=== PATIENT | female | born 1975 | race Caucasian/White ===

== ENCOUNTER 2017-06-28 11:05 | Emergency (ER) | payer MEDICAID ==
[~2017-06-28] VITALS: Ht 177.8 cm; Wt 122.3 kg
[~2017-06-28 11:05] MED LIST: PRED20TA PO
[2017-06-28 11:51] LABS: CLARITY,URINE CLEAR (Clear); COLOR,URINE YELLOW (Yellow); GLUCOSE, URINE >=1000 mg/dl (Neg); KETONES,URINE NEGATIVE (Neg); LEUKOCYTE ESTERASE ,URINE NEGATIVE (Neg); NITRITES, URINE NEGATIVE (Neg); OCCULT BLOOD,URINE NEGATIVE (Neg); PH,URINE 5.5 (4.8-8.0); PROTEIN,URINE NEGATIVE (Neg); UROBILINOGEN,URINE 0.2 E.U/dL (0.2-1.0)
[2017-06-28 11:52] LABS: UA COLLECTION TYPE CLN CATCH MIDSTREAM
[2017-06-28 12:02] LABS: SQUAMOUS EPITHELIAL CELL,UR MODERATE /LPF (FEW)
[2017-06-28 12:03] LABS: BACTERIA,URINE 1+ /HPF (Neg); RBC,URINE 0-2 /HPF (0-2); WBC,URINE 0-4 /HPF (0-4); YEAST MODERATE /HPF (NEGATIVE)
[2017-06-28] MEDS ORDERED: METF500T PO (12:28)
[2017-06-28] MEDS ORDERED: LORA10TA7 PO (12:28)
[2017-06-28] MEDS ORDERED: EST1T PO (12:28)
[2017-06-28] MEDS ORDERED: IBUP-1984 PO (12:28)
[2017-06-28] MEDS ORDERED: S-AD200T6 PO (12:28)
[2017-06-28 12:55] LABS: BASOPHILS % (AUTO) 0.6 % (0-1); EOSINOPHILS # (AUTO) 0.1 X10'3 (0-0.9); EOSINOPHILS % (AUTO) 2.7 % (0-6); HEMATOCRIT 40.9 % (35.0-45.0); HEMOGLOBIN 14.3 g/dl (12.0-16.0); LYMPHOCYTES # (AUTO) 1.4 X10'3 (1.1-4.8); MEAN CORPUSCULAR HEMOGLOBIN 30.2 PG (27.0-31.0); MEAN CORPUSCULAR VOLUME 86.2 FL (78-98); MEAN PLATELET VOLUME 9.6 FL (7.4-10.4); MONOCYTES # (AUTO) 0.2 X10'3 (0-0.9); MONOCYTES % (AUTO) 6.9 % (2-12); NEUTROPHILS # (AUTO) 1.7 X10'3 (1.8-7.7); NEUTROPHILS % (AUTO) 49.8 % (42-75); PLATELET COUNT 59 X10'3 (140-440); RED BLOOD COUNT 4.74 X10'6 (4.20-5.60); RED CELL DISTRIBUTION WIDTH 12.6 % (11.5-14.5); WHITE BLOOD COUNT 3.5 X10'3 (4.5-11.0)
[2017-06-28 13:05] LABS: PARTIAL THROMBOPLASTIN TIME 25 SECONDS (22-32); PROTHROMBIN TIME 10.5 SECONDS (9.0-12.0)
[2017-06-28 13:18] LABS: ALANINE AMINOTRANSFERASE 107 U/L (12-78); ALBUMIN 3.4 G/DL (3.4-5.0); ALBUMIN/GLOBULIN RATIO 0.9 (1.1-1.5); ALKALINE PHOSPHATASE 163 IU/L (46-116); ANION GAP 8 (8-16); ASPARTATE AMINO TRANSFERASE 61 U/L (10-37); BILIRUBIN,TOTAL 0.6 MG/DL (0.1-1.0); BLOOD UREA NITROGEN 14 MG/DL (7-18); BUN/CREATININE RATIO 17.9 (6.6-38.0); CALCIUM 9.1 MG/DL (8.5-10.1); CHLORIDE 103 MMOL/L (99-107); CREATININE 0.78 MG/DL (0.40-0.90); GLUCOSE 306 MG/DL (70-104); POTASSIUM 4.1 MMOL/L (3.5-5.1); SODIUM 137 MMOL/L (135-145); TOTAL CARBON DIOXIDE 25.7 MMOL/L (24-32); TOTAL PROTEIN 7.1 G/DL (6.4-8.2); eGFR 81 ML/MIN
[2017-06-28 14:15] VITALS: BP 124/124
[2017-06-30 10:10] LABS: OCCULT BLOOD STOOL NEGATIVE (Neg)
== END 2017-06-28 14:16 | disposition home or self-care (01) ==
LOC: ER 11:06
DX: K92.1 Melena (principal); R73.9 Hyperglycemia, unspecified; R94.5 Abnormal results of liver function studies; Z90.710 Acquired absence of both cervix and uterus; Z90.49 Acquired absence of other specified parts of digestive tract; Z86.14 Personal history of Methicillin resistant Staphylococcus aureus infection; Z79.84 Long term (current) use of oral hypoglycemic drugs; Z79.899 Other long term (current) drug therapy
CPT/HCPCS: 36415; 80053; 81001; 82272; 85025; 85610; 85730; 99284

== ENCOUNTER 2020-04-23 05:18 | Inpatient (IN) | payer BC ==
[2020-04-16 12:41] LABS: BASOPHILS % (AUTO) 1.3 % (0-1); EOSINOPHILS % (AUTO) 1.5 % (0-6); LYMPHOCYTES # (AUTO) 0.8 X10'3 (1.1-4.8); LYMPHOCYTES % (AUTO) 36.9 % (21-51); MEAN CORPUSCULAR HGB CONC 33.7 g/dL (33.0-36.5); MEAN PLATELET VOLUME 9.1 FL (7.4-10.4); MONOCYTES # (AUTO) 0.2 X10'3 (0-0.9); MONOCYTES % (AUTO) 9.5 % (2-12); NEUTROPHILS # (AUTO) 1.1 X10'3 (1.8-7.7); NEUTROPHILS % (AUTO) 50.8 % (42-75); PRE OP HEMATOCRIT 41.4 % (35.0-45.0); PRE OP HEMOGLOBIN 13.9 g/dL (12.0-16.0); RED BLOOD COUNT 4.82 X10'6 (4.20-5.60); RED CELL DISTRIBUTION WIDTH 15.5 % (11.5-14.5)
[2020-04-16 12:51] LABS: PRE OP PLATELET COUNT 40 X10'3 (140-440)
[2020-04-16 12:55] LABS: ALBUMIN 3.5 G/DL (3.4-5.0); ALBUMIN/GLOBULIN RATIO 0.9 (1.1-1.5); ALKALINE PHOSPHATASE 215 IU/L (46-116); BLOOD UREA NITROGEN 11 MG/DL (7-18); BUN/CREATININE RATIO 17.2 (6.6-38.0); CALCIUM 8.9 MG/DL (8.5-10.1); CHLORIDE 104 MMOL/L (99-107); CREATININE 0.64 MG/DL (0.40-0.90); PRE OP ALT 61 U/L (30-65); PRE OP ANION GAP 11 (8-16); PRE OP AST 54 U/L (10-37); PRE OP BILIRUB, TOTAL 0.9 MG/DL (0.0-1.0); PRE OP GLUCOSE 158 MG/DL (70-104); PRE OP POTASSIUM 3.7 MMOL/L (3.4-5.1); PRE OP SODIUM 139 MMOL/L (135-145); TOTAL CARBON DIOXIDE 24.5 MMOL/L (24-32); TOTAL PROTEIN 7.2 G/DL (6.4-8.2); eGFR > 90 ML/MIN
[2020-04-16 13:13] LABS: PLATELET ESTIMATE DECREASED; TOTAL CELLS COUNTED 100
[~2020-04-23] VITALS: Ht 177.8 cm; Wt 108.9 kg
[2020-04-23] VITALS (31 sets, daily range): BP systolic 103–147; BP diastolic 56–96
[~2020-04-23 05:18] MED LIST changes: +METF500T PO; -PRED20TA PO; +ringers solution, lacted 1,000 ML IV SCH
[2020-04-23] MEDS ORDERED: famotidine 20mg tablet PO ONE (05:30)
[2020-04-23] MEDS ORDERED: ceFAZolin 2gm in dextrose, iso 50 ML IV ONE (05:30)
[2020-04-23] MEDS ORDERED: LIDOcaine 1% (10mg/ml) 2ml vial ONE (05:56)
[2020-04-23] MEDS ORDERED: LIDOcaine 1% 30ml preserv. free vial ONE (06:39)
[2020-04-23] MEDS ORDERED: BUPIVAcaine/PF 2.5 mg/ml (0.25%) 30ml vial ONE (06:40)
[2020-04-23] MEDS ORDERED: BUPIVACAINE liposomal/PF 13.3 MG/ML vial IM ONE (06:40)
[2020-04-23] MEDS ORDERED: BUPIVAcaine/PF 2.5mg/ml (0.25%) 10ml vial ONE (06:40)
[2020-04-23] MEDS ORDERED: labetalol 20mg/4ml (5mg/ml) syringe IV PRN (07:15)
[2020-04-23] MEDS ORDERED: morphine 2 MG/ML inj. syringe IV PRN (07:15)
[2020-04-23] MEDS ORDERED: ondansetron/PF 4mg/2ml inj IV PRN ×2 (07:15→11:20)
[2020-04-23] MEDS ORDERED: fentaNYL/PF 50MCG/1 ML 2ML syringe IV PRN ×2 (07:15)
[2020-04-23] MEDS ORDERED: ringers solution, lacted 1,000 ML IV SCH (07:15)
[2020-04-23] MEDS ORDERED: hydrALAZINE 20mg/ml inj. IV PRN (07:15)
[2020-04-23] MEDS ORDERED: midazolam 2 mg/2 ml injection ONE (07:21)
[2020-04-23] MEDS ORDERED: fentaNYL /PF 50mcg/ml 5ml ampule ONE (07:21)
[2020-04-23] MEDS ORDERED: ondansetron/PF 4mg/2ml inj ONE (07:23)
[2020-04-23] MEDS ORDERED: propofol inj 20 ML IV ONE (07:23)
[2020-04-23] MEDS ORDERED: glycopyrrolate 0.2mg/ml inj ONE (07:23)
[2020-04-23] MEDS ORDERED: rocuronium 10mg/ml inj IV ONE ×2 (07:23→09:05)
[2020-04-23] MEDS ORDERED: neostigmine methylsulfate 1 MG/ML 10ml vial ONE (07:23)
[2020-04-23] MEDS ORDERED: dexamethasone sod phosphate 4mg/ml inj. ONE (07:23)
[2020-04-23] MEDS ORDERED: LIDOcaine 2% (20mg/ml) 5ml vial ONE (07:23)
[2020-04-23] MEDS ORDERED: sevoflurane 250ml liquid IH ONE (07:40)
[2020-04-23] MEDS ORDERED: labetalol 20mg/4ml (5mg/ml) syringe IV ONE (08:14)
[2020-04-23] MEDS ORDERED: fentaNYL/PF 50MCG/1 ML 2ML syringe ONE (09:42)
[2020-04-23] MEDS ORDERED: albumin (Human) 5% 250ml 250 ML IV ONE (10:25)
--- NOTE | 2020-04-23 11:16 | NUR ---
Received from OR via SURGICAL BED , accompanied by Anesthesiologist ANITHA and report given by Anesthesiolgist. PATIENT WITH 20GPIV IN LEFT UE RUNNING LR AT 100. BG OF 223 UPON ARRIVAL. MEDICATED FOR PAIN. Addendum: 04/23/20 at 1137 by Madi Green RN, RN Amended: Links added.
[2020-04-23] MEDS ORDERED: naloxone 0.4 mg/ml inj IV PRN (11:20)
[2020-04-23] MEDS ORDERED: CADD PCA waste documentation MC PRN (11:20)
[2020-04-23] MEDS: morphine 4 MG/ML inj SYRINge IV PRN ×2 (11:51→12:01)
[2020-04-23] MEDS: HYDROmorphone/NS 1 mg/ml CADD 50 ML IV SCH ×7 (12:03→23:00)
[2020-04-23 13:02] LABS: BASOPHILS % (AUTO) 0.2 % (0-1); EOSINOPHILS % (AUTO) 0.7 % (0-6); HEMATOCRIT 36.8 % (35.0-45.0); HEMOGLOBIN 12.4 g/dl (12.0-16.0); LYMPHOCYTES # (AUTO) 0.3 X10'3 (1.1-4.8); LYMPHOCYTES % (AUTO) 14.3 % (21-51); MEAN CORPUSCULAR HEMOGLOBIN 29.2 PG (27.0-31.0); MEAN CORPUSCULAR HGB CONC 33.8 g/dL (33.0-36.5); MEAN CORPUSCULAR VOLUME 86.5 FL (78-98); MEAN PLATELET VOLUME 8.6 FL (7.4-10.4); MONOCYTES % (AUTO) 2.3 % (2-12); NEUTROPHILS # (AUTO) 1.6 X10'3 (1.8-7.7); NEUTROPHILS % (AUTO) 82.5 % (42-75); RED BLOOD COUNT 4.25 X10'6 (4.20-5.60); RED CELL DISTRIBUTION WIDTH 15.4 % (11.5-14.5)
[2020-04-23 13:08] LABS: PLATELET COUNT 37 X10'3 (140-440)
[2020-04-23 13:18] LABS: ALANINE AMINOTRANSFERASE 55 U/L (12-78); ALBUMIN 3.2 G/DL (3.4-5.0); ALKALINE PHOSPHATASE 177 IU/L (46-116); ANION GAP 10 (8-16); ASPARTATE AMINO TRANSFERASE 61 U/L (10-37); BILIRUBIN,TOTAL 1.2 MG/DL (0.1-1.0); BLOOD UREA NITROGEN 15 MG/DL (7-18); CALCIUM 8.2 MG/DL (8.5-10.1); CHLORIDE 105 MMOL/L (99-107); CREATININE 0.79 MG/DL (0.40-0.90); GLUCOSE 272 MG/DL (70-104); POTASSIUM 4.3 MMOL/L (3.5-5.1); SODIUM 139 MMOL/L (135-145); TOTAL CARBON DIOXIDE 23.6 MMOL/L (24-32); TOTAL PROTEIN 6.5 G/DL (6.4-8.2); eGFR 78 ML/MIN
--- NOTE | 2020-04-23 13:46 | NUR ---
Report called to receiving nurse. Transferred via SURGICAL BED WITH ONE BAG OF Belongings. Special Issues communicated to receiving nurse.VSS. BED LOW, CALL LIGHT PRESENT. PAIN AT A MANAGEABLE LEVEL. NO DRAINAGE PRESENT. Addendum: 04/23/20 at 1352 by Madi Green RN RN Amended: Links added.
[2020-04-23] MEDS ORDERED: glucagon, human recombinant 1mg kit SUBCUT PRN (15:40)
[2020-04-23] MEDS ORDERED: dextrose 50%-water 50ml dispensing syringe IV PRN ×2 (15:40)
[2020-04-23] MEDS ORDERED: MESSAGE TO PHARMACY PO ONE (15:40)
[2020-04-23] MEDS ORDERED: dextrose ORAL solution 15 GM/59 ML bottle PO PRN ×2 (15:40)
[2020-04-23 16:03] LABS: HEMOGLOBIN A1C 8.1 % (4.5-6.2)
[2020-04-23] MEDS: Potassium Cl inj 20 MEQ in ringers solution, lacted 1,000 ML IV SCH ×2 (17:25→19:25)
[2020-04-23] MEDS: insulin glargine (Lantus) pen - multi-dose SQ SCH (21:30)
[2020-04-24] VITALS (9 sets, daily range): BP systolic 117–132; BP diastolic 63–79
[2020-04-24] MEDS: HYDROmorphone/NS 1 mg/ml CADD 50 ML IV SCH ×9 (01:00→17:00)
--- NOTE | 2020-04-24 02:53 | NUR ---
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 PLEASE ADVISE. DARIN FROM SURGICAL [id number] (98 character message out of a maximum of 240) Close [X] Send Another Page Thank you for visiting [facility]
[2020-04-24] MEDS: Potassium Cl inj 20 MEQ in ringers solution, lacted 1,000 ML IV SCH ×3 (05:14→17:16)
--- NOTE | 2020-04-24 05:35 | NUR ---
PT ALERT AND ORIENTED. VOICED HAS A GOOD NIGT
--- NOTE | 2020-04-24 05:37 | NUR ---
PATIENT ALERT AND ORIENTED, STILL IN PAIN. BROADCAST NEWS PRODUCER PUMP STILL IN USE. PATIENT WALKS SEVERAL TIMES, SHE EXPRESSED PASSING GAS. NO BM YET. STILL WAITING BACKBREAKER BACK FOR IBUPROFEN SHE REQUEST FOR SINUS DISCOMFORT. VS WHITIN NORMAL RANGE. NO ACUTE DISTRESS AT THIS TIME
--- NOTE | 2020-04-24 06:10 | NUR ---
Patient in room [facility]. I have received report from JOSE Keller and had the opportunity to ask questions and assume patient care.
--- NOTE | 2020-04-24 06:20 | NUR ---
REPORT GIVEN TO MORNING NURSE. PLAN REPRIORITIZED. QUESTIONS ANSWERED.
[2020-04-24 07:21] LABS: BASOPHILS % (AUTO) 0.5 % (0-1); HEMATOCRIT 35.4 % (35.0-45.0); HEMOGLOBIN 11.9 g/dl (12.0-16.0); LYMPHOCYTES # (AUTO) 0.7 X10'3 (1.1-4.8); MEAN CORPUSCULAR HEMOGLOBIN 29.7 PG (27.0-31.0); MEAN CORPUSCULAR HGB CONC 33.6 g/dL (33.0-36.5); MEAN CORPUSCULAR VOLUME 88.5 FL (78-98); MONOCYTES # (AUTO) 0.5 X10'3 (0-0.9); MONOCYTES % (AUTO) 12.2 % (2-12); NEUTROPHILS # (AUTO) 2.9 X10'3 (1.8-7.7); NEUTROPHILS % (AUTO) 69.3 % (42-75); RED CELL DISTRIBUTION WIDTH 15.7 % (11.5-14.5); WHITE BLOOD COUNT 4.2 X10'3 (4.5-11.0)
[2020-04-24 07:31] LABS: PLATELET COUNT 41 X10'3 (140-440)
[2020-04-24 07:39] LABS: ALANINE AMINOTRANSFERASE 50 U/L (12-78); ALBUMIN 3.1 G/DL (3.4-5.0); ALKALINE PHOSPHATASE 122 IU/L (46-116); ANION GAP 8 (8-16); ASPARTATE AMINO TRANSFERASE 58 U/L (10-37); BILIRUBIN,TOTAL 1.6 MG/DL (0.1-1.0); BLOOD UREA NITROGEN 11 MG/DL (7-18); BUN/CREATININE RATIO 19.6 (6.6-38.0); CALCIUM 8.7 MG/DL (8.5-10.1); CHLORIDE 105 MMOL/L (99-107); CREATININE 0.56 MG/DL (0.40-0.90); GLUCOSE 188 MG/DL (70-104); MAGNESIUM 1.9 MG/DL (1.5-2.4); PHOSPHORUS 3.6 MG/DL (2.3-4.5); POTASSIUM 4.1 MMOL/L (3.5-5.1); SODIUM 140 MMOL/L (135-145); TOTAL CARBON DIOXIDE 27.5 MMOL/L (24-32); TOTAL PROTEIN 6.2 G/DL (6.4-8.2); eGFR > 90 ML/MIN
[2020-04-24] MEDS: insulin Lispro (HumaLOG) vial - multi-dose SQ SCH ×3 (08:32→18:56)
[2020-04-24] MEDS: lisinopril 5mg tablet PO SCH (10:25)
[2020-04-24] MEDS ORDERED: METF-950 PO (10:28)
[2020-04-24] MEDS ORDERED: LISI-604 PO (10:28)
[2020-04-24] MEDS ORDERED: AMA1T PO (10:28)
[2020-04-24] MEDS ORDERED: ASPI-1265 PO (10:28)
[2020-04-24] MEDS ORDERED: Melatonin 3mg tablet PO PRN (11:40)
[2020-04-24] MEDS ORDERED: ibuprofen tablet 400 MG TABLET PO PRN (11:40)
--- NOTE | 2020-04-24 15:43 | NUR ---
Pt with T2DM with A1c 8.1% seen at bedside for written and verbal DM education. Pt reports being newly diagnosed with diabetes a couple months ago and has a f/u appointment with her MD near the end of this month. Pt states she has tried a few different medications for diabetes however is still working with her MD to determine which works best for her. Pt states she does not have a glucometer and refuses to poke herself. Pt verbalizes understanding in the importance of checking her blood sugars and states that her MD is aware of this and is working with MD to determine the best plan of care. Pt states she has already been provided with information regarding nutrition and diabetes management and denies questions at this time. Pt states she has been referred to an outpatient RD for further DM education and is working on scheduling an appointment and reports sister in law is into nutrition and can also assist with nutrition and diabetes management. Pt provided with RD contact information and encouraged to reach out if needed. Pt reports food allergy to avocado and dislike to fish, lemon, [place], and oranges, EMR updated and dietary informed. Pt denies any difficulty chewing/swallowing. Will continue to follow. Addendum: 04/24/20 at [address] Amended: Links added.
[2020-04-24] MEDS ORDERED: oxyCODONE/APAP 5-325mg tablet PO PRN (17:20)
[2020-04-24] MEDS ORDERED: magnesium hydroxide 30ml (MOM) UD suspension PO ONE (17:20)
[2020-04-24] MEDS: oxyCODONE/APAP 5-325mg tablet PO PRN ×2 (17:44→21:14)
[2020-04-24] MEDS ORDERED: CADD PCA waste documentation MC PRN (18:35)
--- NOTE | 2020-04-24 18:40 | NUR ---
Problems reprioritized. Patient report given, questions answered & plan of care reviewed with JOSE Altamirano.
[2020-04-24] MEDS: insulin glargine (Lantus) pen - multi-dose SQ SCH (20:56)
[2020-04-25] VITALS: BP 111/59
[2020-04-25] MEDS: oxyCODONE/APAP 5-325mg tablet PO PRN ×3 (01:12→09:55)
--- NOTE | 2020-04-25 06:25 | NUR ---
Patient in room [facility]. I have received report from JOSE Altamirano and had the opportunity to ask questions and assume patient care.
[2020-04-25 06:26] LABS: BASOPHILS % (AUTO) 0.6 % (0-1); EOSINOPHILS # (AUTO) 0.1 X10'3 (0-0.9); EOSINOPHILS % (AUTO) 3.4 % (0-6); HEMATOCRIT 34.8 % (35.0-45.0); HEMOGLOBIN 11.9 g/dl (12.0-16.0); LYMPHOCYTES % (AUTO) 25.5 % (21-51); MEAN CORPUSCULAR HEMOGLOBIN 30.4 PG (27.0-31.0); MEAN CORPUSCULAR HGB CONC 34.1 g/dL (33.0-36.5); MEAN CORPUSCULAR VOLUME 89.2 FL (78-98); MEAN PLATELET VOLUME 9.1 FL (7.4-10.4); MONOCYTES # (AUTO) 0.5 X10'3 (0-0.9); MONOCYTES % (AUTO) 12.3 % (2-12); NEUTROPHILS # (AUTO) 2.3 X10'3 (1.8-7.7); NEUTROPHILS % (AUTO) 58.2 % (42-75); RED CELL DISTRIBUTION WIDTH 15.4 % (11.5-14.5); WHITE BLOOD COUNT 3.9 X10'3 (4.5-11.0)
[2020-04-25 06:30] VITALS: BP 104/59
[2020-04-25 06:37] LABS: PLATELET COUNT 34 X10'3 (140-440)
[2020-04-25 06:46] LABS: ALANINE AMINOTRANSFERASE 57 U/L (12-78); ALBUMIN 3.2 G/DL (3.4-5.0); ALKALINE PHOSPHATASE 113 IU/L (46-116); ANION GAP 6 (8-16); ASPARTATE AMINO TRANSFERASE 65 U/L (10-37); BILIRUBIN,TOTAL 1.7 MG/DL (0.1-1.0); BLOOD UREA NITROGEN 11 MG/DL (7-18); BUN/CREATININE RATIO 19.3 (6.6-38.0); CALCIUM 8.1 MG/DL (8.5-10.1); CHLORIDE 104 MMOL/L (99-107); CREATININE 0.57 MG/DL (0.40-0.90); GLUCOSE 156 MG/DL (70-104); MAGNESIUM 1.9 MG/DL (1.5-2.4); PHOSPHORUS 4.1 MG/DL (2.3-4.5); POTASSIUM 4.1 MMOL/L (3.5-5.1); SODIUM 139 MMOL/L (135-145); TOTAL PROTEIN 6.3 G/DL (6.4-8.2); eGFR > 90 ML/MIN
[2020-04-25] MEDS: lisinopril 5mg tablet PO SCH (08:00)
[2020-04-25] MEDS: insulin Lispro (HumaLOG) vial - multi-dose SQ SCH (08:29)
[2020-04-25] MEDS ORDERED: aspirin 81mg tablet.DR PO SCH (08:30)
[2020-04-25 11:00] VITALS: BP 100/50
[2020-04-25] MEDS ORDERED: OXYC1TAB17 PO (11:21)
[2020-04-25] MEDS ORDERED: magnesium hydroxide 30ml (MOM) UD suspension PO ONE (11:30)
--- NOTE | 2020-04-25 12:55 | NUR ---
DC inst provided to pt. IV DC'd, tip intact. All belongings sent w/pt. Pt ambulated to front lobby.
== END 2020-04-25 12:57 | disposition home or self-care (01) | DRG 336 ==
LOC: PAS 05:18 → SUR 3N 11:16
PROVIDERS: ADMIT Surgery; ATTEND Surgery
PROC: 0DNU4ZZ Release Omentum, Percutaneous Endoscopic Approach (ICD-10-PCS; 2020-04-23)
PROC: 0DNE4ZZ Release Large Intestine, Percutaneous Endoscopic Approach (ICD-10-PCS; 2020-04-23)
PROC: 0DN84ZZ Release Small Intestine, Percutaneous Endoscopic Approach (ICD-10-PCS; 2020-04-23)
PROC: 8E0W4CZ Robotic Assisted Procedure of Trunk Region, Percutaneous Endoscopic Approach (ICD-10-PCS; 2020-04-23)
PROC: 0WQF4ZZ Repair Abdominal Wall, Percutaneous Endoscopic Approach (ICD-10-PCS; principal; 2020-04-23 07:40)
DX: K43.0 Incisional hernia with obstruction, without gangrene (principal); D61.818 Other pancytopenia; K76.6 Portal hypertension; D69.59 Other secondary thrombocytopenia; E11.9 Type 2 diabetes mellitus without complications; E66.9 Obesity, unspecified; K66.0 Peritoneal adhesions (postprocedural) (postinfection); K74.60 Unspecified cirrhosis of liver; F17.210 Nicotine dependence, cigarettes, uncomplicated; Z79.82 Long term (current) use of aspirin; Z79.84 Long term (current) use of oral hypoglycemic drugs; Z80.0 Family history of malignant neoplasm of digestive organs; Z90.710 Acquired absence of both cervix and uterus; Z68.34 Body mass index [BMI] 34.0-34.9, adult; Z90.49 Acquired absence of other specified parts of digestive tract
CPT/HCPCS: Z7506; Z7508; 36415; 80053; 82948; 83036; 83735; 84100; 84443; 85007; 85025; 85610; 87635; 93005; A4215; A4618; C9290; G0378; J1100; J1170; J1815; J2001; J2250; J2270; J2405; J2704; J2710; J3010; J3480; J3490; J7120; P9045

== ENCOUNTER 2020-07-08 08:26 | Outpatient (CLI) | payer BC ==
[~2020-07-08 08:26] MED LIST changes: +LISI-790 PO; -METF500T PO; +iohexol 300mg/ml 100ml inj. ONE; -ringers solution, lacted 1,000 ML IV SCH
== END 2020-07-08 23:59 | disposition home or self-care (01) ==
LOC: 64 CT 08:26
PROVIDERS: ATTEND Surgery
DX: K76.0 Fatty (change of) liver, not elsewhere classified (principal); R16.1 Splenomegaly, not elsewhere classified; I86.8 Varicose veins of other specified sites; K76.6 Portal hypertension; K74.60 Unspecified cirrhosis of liver
CPT/HCPCS: 74177; Q9967

== ENCOUNTER 2020-07-21 11:39 | Emergency (ER) | payer BC ==
[~2020-07-21] VITALS: Ht 180.3 cm; Wt 100.0 kg
[~2020-07-21 11:39] MED LIST changes: -iohexol 300mg/ml 100ml inj. ONE
[2020-07-21] MEDS ORDERED: normal saline 1000ML IV soln IVB ONE (11:55)
[2020-07-21 12:21] LABS: BASOPHILS % (AUTO) 0.5 % (0-1); EOSINOPHILS % (AUTO) 1.8 % (0-6); HEMATOCRIT 42.8 % (35.0-45.0); HEMOGLOBIN 14.1 g/dl (12.0-16.0); LYMPHOCYTES # (AUTO) 0.6 X10'3 (1.1-4.8); LYMPHOCYTES % (AUTO) 23.9 % (21-51); MEAN CORPUSCULAR HEMOGLOBIN 28.6 PG (27.0-31.0); MEAN CORPUSCULAR HGB CONC 32.9 g/dL (33.0-36.5); MEAN CORPUSCULAR VOLUME 86.9 FL (78-98); MEAN PLATELET VOLUME 9.5 FL (7.4-10.4); MONOCYTES # (AUTO) 0.2 X10'3 (0-0.9); NEUTROPHILS # (AUTO) 1.5 X10'3 (1.8-7.7); NEUTROPHILS % (AUTO) 63.8 % (42-75); RED BLOOD COUNT 4.93 X10'6 (4.20-5.60); RED CELL DISTRIBUTION WIDTH 16.3 % (11.5-14.5); WHITE BLOOD COUNT 2.3 X10'3 (4.5-11.0)
[2020-07-21 12:35] LABS: ALANINE AMINOTRANSFERASE 46 U/L (12-78); ALBUMIN 3.6 G/DL (3.4-5.0); ALBUMIN/GLOBULIN RATIO 0.9 (1.1-1.5); ALKALINE PHOSPHATASE 167 IU/L (46-116); ANION GAP 13 (8-16); ASPARTATE AMINO TRANSFERASE 57 U/L (10-37); BILIRUBIN,TOTAL 1.1 MG/DL (0.1-1.0); BLOOD UREA NITROGEN 11 MG/DL (7-18); CALCIUM 9.3 MG/DL (8.5-10.1); CHLORIDE 106 MMOL/L (99-107); CREATININE 0.55 MG/DL (0.40-0.90); GLUCOSE 110 MG/DL (70-104); LIPASE 146 U/L (73-393); SODIUM 142 MMOL/L (135-145); TOTAL CARBON DIOXIDE 23.3 MMOL/L (24-32); TOTAL PROTEIN 7.6 G/DL (6.4-8.2); eGFR > 90 ML/MIN
[2020-07-21 12:44] LABS: PLATELET COUNT 43 X10'3 (140-440)
[2020-07-21 12:52] LABS: ANISOCYTOSIS 1+; PLATELET ESTIMATE DECREASED; TOTAL CELLS COUNTED 100
[2020-07-21] MEDS ORDERED: ondansetron/PF 4mg/2ml inj IV ONE (13:25)
[2020-07-21 13:27] VITALS: BP 137/75
[2020-07-21] MEDS: morphine 4 MG/ML inj SYRINge IV PRN ×2 (13:37→14:16)
[2020-07-21 14:00] LABS: CLARITY,URINE CLEAR (Clear); COLOR,URINE YELLOW (Yellow); GLUCOSE, URINE NEGATIVE (Neg); KETONES,URINE TRACE mg/dl (Neg); LEUKOCYTE ESTERASE ,URINE NEGATIVE (Neg); NITRITES, URINE NEGATIVE (Neg); OCCULT BLOOD,URINE NEGATIVE (Neg); PROTEIN,URINE NEGATIVE (Neg); UROBILINOGEN,URINE 0.2 E.U/dL (0.2-1.0)
[2020-07-21 14:05] LABS: UA COLLECTION TYPE CLN CATCH MIDSTREAM
== END 2020-07-21 14:29 | disposition home or self-care (01) ==
LOC: ER 11:41
DX: K74.60 Unspecified cirrhosis of liver (principal); R10.84 Generalized abdominal pain; R11.2 Nausea with vomiting, unspecified; G89.18 Other acute postprocedural pain; Z86.14 Personal history of Methicillin resistant Staphylococcus aureus infection; Z90.89 Acquired absence of other organs; Z90.49 Acquired absence of other specified parts of digestive tract; Z90.710 Acquired absence of both cervix and uterus; Z98.890 Other specified postprocedural states; Z88.8 Allergy status to other drugs, medicaments and biological substances; Z79.899 Other long term (current) drug therapy
CPT/HCPCS: 36415; 71045; 80053; 81003; 83690; 85007; 85025; 96361; 96374; 96375; 96376; 99284; J2270; J2405; J7030

== ENCOUNTER 2023-01-13 07:43 | Day surgery (SDC) | payer BC ==
[2023-01-13] VITALS (8 sets, daily range): BP systolic 114–135; BP diastolic 48–90; PULSE 88–95; RESP 12–16; TEMP 98.2; O2SAT 97–98
[~2023-01-13] VITALS: Ht 162.6 cm; Wt 105.2 kg
[~2023-01-13 07:43] MED LIST changes: +FERR325T29 PO; +FURO40TA4 PO; +GABA300T25 PO; -LISI-790 PO; +METF-438 PO; +MONT-40 PO; +OMEP40CA21 PO; +ONDA-104 PO; +OXYC10TA47 PO; +SEMA1PEN3 SQ; +SPIR25TA5 PO; +ZOLP10TA PO
[2023-01-13] MEDS: albumin 25% 100mL bottle x 1 IV PRN ×2 (09:35→09:37)
== END 2023-01-13 11:05 | disposition home or self-care (01) ==
LOC: SSTAY O 07:43
PROVIDERS: ATTEND Radiology Diagnostic Radiology
DX: R18.8 Other ascites (principal); R14.0 Abdominal distension (gaseous); K75.81 Nonalcoholic steatohepatitis (NASH); K76.6 Portal hypertension; K74.60 Unspecified cirrhosis of liver; D72.819 Decreased white blood cell count, unspecified; D64.9 Anemia, unspecified; D69.6 Thrombocytopenia, unspecified; E11.9 Type 2 diabetes mellitus without complications; Z98.890 Other specified postprocedural states; Z90.49 Acquired absence of other specified parts of digestive tract; Z90.710 Acquired absence of both cervix and uterus; Z91.018 Allergy to other foods; Z79.899 Other long term (current) drug therapy; Z79.84 Long term (current) use of oral hypoglycemic drugs
CPT/HCPCS: 49083; 82948; C1729; J3490; P9047; A6258

== ENCOUNTER 2023-01-20 06:56 | Day surgery (SDC) | payer BC ==
[2023-01-20] VITALS (8 sets, daily range): BP systolic 116–150; BP diastolic 62–75; PULSE 96–104; RESP 12–16; TEMP 99.1; O2SAT 97–99
[~2023-01-20] VITALS: Ht 180.3 cm; Wt 103.4 kg
[2023-01-20] MEDS ORDERED: normal saline 1000ml 1,000 ML IV PRN (07:15)
[2023-01-20] MEDS: albumin 25% 100mL bottle x 1 IV PRN ×2 (09:15→09:40)
== END 2023-01-20 10:45 | disposition home or self-care (01) ==
LOC: SSTAY O 06:56
PROVIDERS: ATTEND Radiology Vascular & Interventional Radiology
DX: R18.8 Other ascites (principal); R14.0 Abdominal distension (gaseous); K75.81 Nonalcoholic steatohepatitis (NASH); K74.60 Unspecified cirrhosis of liver; K76.6 Portal hypertension; D64.9 Anemia, unspecified; D72.819 Decreased white blood cell count, unspecified; D69.6 Thrombocytopenia, unspecified; E11.9 Type 2 diabetes mellitus without complications; Z98.890 Other specified postprocedural states; Z90.49 Acquired absence of other specified parts of digestive tract; Z90.710 Acquired absence of both cervix and uterus; Z91.018 Allergy to other foods; Z79.899 Other long term (current) drug therapy; Z79.84 Long term (current) use of oral hypoglycemic drugs
CPT/HCPCS: 49083; C1729; J3490; P9047; 96360; A6258; A6449

== ENCOUNTER 2023-01-27 07:14 | Day surgery (SDC) | payer BC ==
[~2023-01-27] VITALS: Ht 180.3 cm; Wt 111.2 kg
[2023-01-27] VITALS (7 sets, daily range): BP systolic 154–165; BP diastolic 73–85; PULSE 97–107; RESP 14–20; TEMP 97.8; O2SAT 96–100
[2023-01-27] MEDS ORDERED: ketorolac trometh. 30mg/ml inj. IV ONE (08:25)
[2023-01-27] MEDS ORDERED: metoclopramide 5 mg/ml inj IV ONE (08:25)
[2023-01-27] MEDS: albumin 25% 100mL bottle x 1 IV PRN ×2 (08:33→09:11)
== END 2023-01-27 11:00 | disposition home or self-care (01) ==
LOC: SSTAY O 07:14
PROVIDERS: ATTEND Radiology Vascular & Interventional Radiology
DX: R18.8 Other ascites (principal); K74.60 Unspecified cirrhosis of liver; K76.6 Portal hypertension; R16.1 Splenomegaly, not elsewhere classified; Z90.49 Acquired absence of other specified parts of digestive tract; Z90.710 Acquired absence of both cervix and uterus; Z98.890 Other specified postprocedural states; Z79.899 Other long term (current) drug therapy
CPT/HCPCS: 49083; C1729; J1885; J2765; P9047; A6258; A6449

== ENCOUNTER 2023-02-03 07:27 | Day surgery (SDC) | payer BC ==
[2023-02-03] VITALS (7 sets, daily range): BP systolic 109–136; BP diastolic 63–88; PULSE 84–93; RESP 16–18; TEMP 98.2; O2SAT 97–99
[~2023-02-03] VITALS: Ht 180.3 cm; Wt 99.1 kg
[2023-02-03] MEDS ORDERED: ketorolac trometh. 30mg/ml inj. IV ONE (08:25)
[2023-02-03] MEDS ORDERED: ondansetron/PF 4mg/2ml inj IV ONE (08:25)
[2023-02-03] MEDS ORDERED: albumin 25% 100mL bottle x 1 IV PRN (08:30)
[2023-02-03] MEDS ORDERED: ketorolac tromethamine 15mg/ml inj. IV ONE (08:52)
== END 2023-02-03 10:30 | disposition home or self-care (01) ==
LOC: SSTAY O 07:27
PROVIDERS: ATTEND Radiology Vascular & Interventional Radiology
DX: R18.8 Other ascites (principal); K76.6 Portal hypertension; K74.60 Unspecified cirrhosis of liver; D64.9 Anemia, unspecified; Z90.49 Acquired absence of other specified parts of digestive tract; Z90.710 Acquired absence of both cervix and uterus; Z98.890 Other specified postprocedural states; Z79.899 Other long term (current) drug therapy
CPT/HCPCS: 49083; C1729; J1885; J2405; P9047; A6258; A6449

== ENCOUNTER 2023-02-10 07:31 | Day surgery (SDC) | payer BC ==
[2023-02-10] VITALS (7 sets, daily range): BP systolic 113–146; BP diastolic 61–97; PULSE 86–101; RESP 15–17; TEMP 99; O2SAT 95–99
[~2023-02-10] VITALS: Ht 180.3 cm; Wt 103.7 kg
[2023-02-10] MEDS: albumin 25% 100mL bottle x 1 IV PRN ×2 (08:35→09:28)
--- NOTE | 2023-02-10 10:20 | NUR ---
Pt not draining any more. Slight blood in tube. DCd para cath and Case came in to look at it. Offered to do the procedure again the pt declined. She is very emotional today and can't tolerate another one. Case wanted 2 albumins infusion even with low output. Cont to monitor.
== END 2023-02-10 10:45 | disposition home or self-care (01) ==
LOC: SSTAY O 07:31
PROVIDERS: ATTEND Radiology Vascular & Interventional Radiology
DX: R18.8 Other ascites (principal); R14.0 Abdominal distension (gaseous); K75.81 Nonalcoholic steatohepatitis (NASH); K74.60 Unspecified cirrhosis of liver; K76.6 Portal hypertension; D64.9 Anemia, unspecified; D72.819 Decreased white blood cell count, unspecified; D69.6 Thrombocytopenia, unspecified; E11.9 Type 2 diabetes mellitus without complications; Z90.49 Acquired absence of other specified parts of digestive tract; Z90.710 Acquired absence of both cervix and uterus; Z98.890 Other specified postprocedural states; Z79.84 Long term (current) use of oral hypoglycemic drugs; Z79.899 Other long term (current) drug therapy; Z91.018 Allergy to other foods
CPT/HCPCS: 49083; C1729; P9047; A6258; A6449

== ENCOUNTER 2023-02-16 06:11 | Day surgery (SDC) | payer BC ==
[2023-02-16] VITALS (7 sets, daily range): BP systolic 119–160; BP diastolic 68–97; PULSE 92–101; RESP 12–16; TEMP 99; O2SAT 95–99
[~2023-02-16] VITALS: Ht 180.3 cm; Wt 106.2 kg
[2023-02-16] MEDS: albumin 25% 100mL bottle x 1 IV PRN ×2 (08:21→09:03)
== END 2023-02-16 10:03 | disposition home or self-care (01) ==
LOC: SSTAY O 06:11
PROVIDERS: ATTEND Radiology Vascular & Interventional Radiology
DX: R18.8 Other ascites (principal); R14.0 Abdominal distension (gaseous); K74.60 Unspecified cirrhosis of liver; K76.6 Portal hypertension; D64.9 Anemia, unspecified; D72.818 Other decreased white blood cell count; K75.81 Nonalcoholic steatohepatitis (NASH); D69.6 Thrombocytopenia, unspecified; Z90.49 Acquired absence of other specified parts of digestive tract; Z98.890 Other specified postprocedural states; Z90.710 Acquired absence of both cervix and uterus
CPT/HCPCS: 49083; C1729; P9047; A6258; A6449

== ENCOUNTER 2023-03-01 07:09 | Day surgery (SDC) | payer BC ==
[~2023-03-01] VITALS: Ht 180.3 cm; Wt 93.7 kg
[2023-03-01] MEDS ORDERED: albumin 25% 100mL bottle x 1 IV PRN (07:45)
[2023-03-01 08:04] VITALS: BP 138/81; PULSE 96; RESP 16; TEMP 97.9; O2SAT 98
[2023-03-01 09:47] VITALS: BP 115/73; PULSE 87; RESP 16; O2SAT 99
[2023-03-01 10:02] VITALS: BP 112/70; PULSE 84; RESP 16; O2SAT 99
[2023-03-01 10:17] VITALS: BP 119/65; PULSE 87; RESP 16; O2SAT 99
[2023-03-01 10:32] VITALS: BP 114/66; PULSE 88; RESP 16; O2SAT 99
== END 2023-03-01 10:35 | disposition home or self-care (01) ==
LOC: SSTAY O 07:09
PROVIDERS: ATTEND Radiology Vascular & Interventional Radiology
DX: R18.8 Other ascites (principal); R14.0 Abdominal distension (gaseous); K74.60 Unspecified cirrhosis of liver; K76.6 Portal hypertension; D64.9 Anemia, unspecified; D72.818 Other decreased white blood cell count; K75.81 Nonalcoholic steatohepatitis (NASH); D69.6 Thrombocytopenia, unspecified; Z90.49 Acquired absence of other specified parts of digestive tract; Z98.890 Other specified postprocedural states; Z79.899 Other long term (current) drug therapy; Z90.710 Acquired absence of both cervix and uterus
CPT/HCPCS: 49083; C1729; P9047; A6258

== ENCOUNTER 2023-03-10 07:09 | Day surgery (SDC) | payer BC ==
[~2023-03-10] VITALS: Ht 180.3 cm; Wt 95.1 kg
[2023-03-10] MEDS ORDERED: albumin 25% 100mL bottle x 1 IV PRN (07:25)
[2023-03-10 07:48] VITALS: BP 143/76; PULSE 90; RESP 12; RESP 14; TEMP 98.3; O2SAT 99
[2023-03-10 09:00] VITALS: BP 134/68; PULSE 84; RESP 12; O2SAT 99
[2023-03-10 09:15] VITALS: BP 124/54; PULSE 89; RESP 12; O2SAT 99
[2023-03-10 09:30] VITALS: BP 120/68; PULSE 86; RESP 14; O2SAT 100
[2023-03-10 09:41] VITALS: BP 125/65; PULSE 85; RESP 12; O2SAT 98
[2023-03-10 09:56] VITALS: BP 120/66; PULSE 90; RESP 12; O2SAT 99
== END 2023-03-10 10:05 | disposition home or self-care (01) ==
LOC: SSTAY O 07:09
PROVIDERS: ATTEND Radiology Vascular & Interventional Radiology
DX: R18.8 Other ascites (principal); R14.0 Abdominal distension (gaseous); K76.6 Portal hypertension; K76.82 Hepatic encephalopathy; D72.819 Decreased white blood cell count, unspecified; D53.9 Nutritional anemia, unspecified; K75.81 Nonalcoholic steatohepatitis (NASH); D69.6 Thrombocytopenia, unspecified; Z90.49 Acquired absence of other specified parts of digestive tract; Z90.710 Acquired absence of both cervix and uterus; Z98.890 Other specified postprocedural states; Z79.899 Other long term (current) drug therapy
CPT/HCPCS: 49083; C1729; J7030; A4620; A6258; A6449

== ENCOUNTER 2023-03-31 07:17 | Day surgery (SDC) | payer BC ==
[~2023-03-31] VITALS: Ht 180.3 cm; Wt 106.0 kg
[2023-03-31] VITALS (8 sets, daily range): BP systolic 114–139; BP diastolic 51–78; PULSE 87–99; RESP 15–18; TEMP 98; O2SAT 98–100
[2023-03-31] MEDS ORDERED: normal saline 1000ml 1,000 ML IV PRN (07:35)
[2023-03-31] MEDS ORDERED: LACT10SO3 PO (07:42)
[2023-03-31] MEDS ORDERED: NICO-631 TOP (07:42)
[2023-03-31] MEDS: albumin 25% 100mL bottle x 1 IV PRN ×3 (08:23→10:46)
== END 2023-03-31 12:00 | disposition home or self-care (01) ==
LOC: SSTAY O 07:17
PROVIDERS: ATTEND Radiology Vascular & Interventional Radiology
DX: R18.8 Other ascites (principal); R14.0 Abdominal distension (gaseous); K76.6 Portal hypertension; K75.81 Nonalcoholic steatohepatitis (NASH); K74.60 Unspecified cirrhosis of liver; K76.82 Hepatic encephalopathy; D72.818 Other decreased white blood cell count; D64.9 Anemia, unspecified; D69.6 Thrombocytopenia, unspecified; Z98.890 Other specified postprocedural states; Z90.49 Acquired absence of other specified parts of digestive tract; Z90.710 Acquired absence of both cervix and uterus; F17.210 Nicotine dependence, cigarettes, uncomplicated; Z79.899 Other long term (current) drug therapy; Z91.018 Allergy to other foods
CPT/HCPCS: 49083; C1729; P9047; A6258; A6449

== ENCOUNTER 2023-04-07 07:27 | Day surgery (SDC) | payer BC ==
[2023-04-07] VITALS (10 sets, daily range): BP systolic 133–155; BP diastolic 70–85; PULSE 101–115; RESP 12–14; TEMP 98.2; O2SAT 99–100
[~2023-04-07] VITALS: Ht 180.3 cm; Wt 101.2 kg
[~2023-04-07 07:27] MED LIST changes: -GABA300T25 PO; +LACT10SO3 PO; +NICO-631 TOP
[2023-04-07] MEDS: albumin 25% 100mL bottle x 1 IV PRN ×2 (08:30→09:49)
== END 2023-04-07 10:30 | disposition home or self-care (01) ==
LOC: SSTAY O 07:27
PROVIDERS: ATTEND Radiology Vascular & Interventional Radiology
DX: R18.8 Other ascites (principal); R14.0 Abdominal distension (gaseous); K76.6 Portal hypertension; K74.69 Other cirrhosis of liver; D64.9 Anemia, unspecified; K75.81 Nonalcoholic steatohepatitis (NASH); D72.818 Other decreased white blood cell count; Z90.49 Acquired absence of other specified parts of digestive tract; Z90.710 Acquired absence of both cervix and uterus; Z98.890 Other specified postprocedural states; Z79.899 Other long term (current) drug therapy
CPT/HCPCS: 49083; C1729; P9047; A6258; A6449

== ENCOUNTER 2023-04-14 07:44 | Day surgery (SDC) | payer BC ==
[2023-04-14] VITALS (10 sets, daily range): BP systolic 120–142; BP diastolic 60–78; PULSE 92–112; RESP 16; TEMP 98.9; O2SAT 99–100
[~2023-04-14] VITALS: Ht 180.3 cm; Wt 98.0 kg
[~2023-04-14 07:44] MED LIST changes: -NICO-631 TOP
[2023-04-14] MEDS: albumin 25% 100mL bottle x 1 IV PRN ×3 (09:09→10:05)
== END 2023-04-14 11:30 | disposition home or self-care (01) ==
LOC: SSTAY O 07:44
PROVIDERS: ATTEND Radiology Vascular & Interventional Radiology
DX: R18.8 Other ascites (principal); R14.0 Abdominal distension (gaseous); K76.6 Portal hypertension; K76.82 Hepatic encephalopathy; K74.60 Unspecified cirrhosis of liver; D64.9 Anemia, unspecified; D72.819 Decreased white blood cell count, unspecified; K75.81 Nonalcoholic steatohepatitis (NASH); D69.6 Thrombocytopenia, unspecified; Z90.49 Acquired absence of other specified parts of digestive tract; Z90.710 Acquired absence of both cervix and uterus; Z98.890 Other specified postprocedural states; Z87.891 Personal history of nicotine dependence; Z91.018 Allergy to other foods; Z79.899 Other long term (current) drug therapy; Z80.0 Family history of malignant neoplasm of digestive organs
CPT/HCPCS: 49083; C1729; P9047; A6258

== ENCOUNTER 2023-04-28 07:59 | Day surgery (SDC) | payer BC ==
[~2023-04-28] VITALS: Ht 180.3 cm; Wt 94.4 kg
[2023-04-28] VITALS (8 sets, daily range): BP systolic 111–139; BP diastolic 66–83; PULSE 90–102; RESP 12; TEMP 98.2; O2SAT 100
[2023-04-28] MEDS ORDERED: normal saline 1000ml 1,000 ML IV PRN (08:20)
[2023-04-28] MEDS: albumin 25% 100mL bottle x 1 IV PRN ×2 (08:55→08:56)
== END 2023-04-28 10:13 | disposition home or self-care (01) ==
LOC: SSTAY O 07:59
PROVIDERS: ATTEND Radiology Vascular & Interventional Radiology
DX: R18.8 Other ascites (principal); R14.0 Abdominal distension (gaseous); I27.20 Pulmonary hypertension, unspecified; K74.60 Unspecified cirrhosis of liver; K76.82 Hepatic encephalopathy; K76.6 Portal hypertension; D72.819 Decreased white blood cell count, unspecified; D64.9 Anemia, unspecified; K75.81 Nonalcoholic steatohepatitis (NASH); D69.6 Thrombocytopenia, unspecified; Z98.890 Other specified postprocedural states; Z90.49 Acquired absence of other specified parts of digestive tract; Z90.710 Acquired absence of both cervix and uterus; Z87.891 Personal history of nicotine dependence; Z79.899 Other long term (current) drug therapy
CPT/HCPCS: 49083; C1729; P9047; A6258; A6449

== ENCOUNTER 2023-05-03 11:15 | Emergency (ER) | payer BC ==
[~2023-05-03] VITALS: Ht 180.3 cm; Wt 91.8 kg
[2023-05-03 11:46] VITALS: BP 127/74; PULSE 104; RESP 18; TEMP 98.2; O2SAT 99
== END 2023-05-03 20:10 | disposition left against medical advice (07) ==
LOC: ER 11:16
DX: R10.9 Unspecified abdominal pain (principal); R11.0 Nausea; Z53.21 Procedure and treatment not carried out due to patient leaving prior to being seen by health care provider
CPT/HCPCS: 99281

== ENCOUNTER 2023-05-05 07:18 | Day surgery (SDC) | payer BC ==
[~2023-05-05] VITALS: Ht 180.3 cm; Wt 96.3 kg
[2023-05-05] VITALS (9 sets, daily range): BP systolic 105–133; BP diastolic 46–70; PULSE 95–102; RESP 16–18; TEMP 98.1; O2SAT 97–100
[2023-05-05] MEDS ORDERED: ondansetron/PF 4mg/2ml inj IV ONE ×2 (07:55→09:20)
[2023-05-05] MEDS: albumin 25% 100mL bottle x 1 IV PRN ×2 (07:57→09:47)
[2023-05-05] MEDS ORDERED: ketorolac tromethamine 15mg/ml inj. IV ONE (08:30)
== END 2023-05-05 11:05 | disposition home or self-care (01) ==
LOC: SSTAY O 07:18
PROVIDERS: ATTEND Radiology Vascular & Interventional Radiology
DX: R18.8 Other ascites (principal); K76.6 Portal hypertension; K75.81 Nonalcoholic steatohepatitis (NASH); K74.60 Unspecified cirrhosis of liver; K76.82 Hepatic encephalopathy; D72.819 Decreased white blood cell count, unspecified; D64.9 Anemia, unspecified; D69.6 Thrombocytopenia, unspecified; Z98.890 Other specified postprocedural states; Z90.49 Acquired absence of other specified parts of digestive tract; Z90.710 Acquired absence of both cervix and uterus; Z87.891 Personal history of nicotine dependence
CPT/HCPCS: 49083; C1729; J1885; J2405; P9047; A6258; A6449

== ENCOUNTER 2023-05-12 10:53 | Inpatient (IN) | payer BC ==
[~2023-05-12] VITALS: Ht 180.3 cm; Wt 90.0 kg
[2023-05-12] MEDS ORDERED: CALCIUM GLUC 1gm/50ml NACL,iso 50 ML IV PRN (11:20)
[2023-05-12] MEDS ORDERED: normal saline 1000ml 1,000 ML IV ONE (11:20)
[2023-05-12] MEDS ORDERED: dextrose 50%-water 50ml dispensing syringe IV ONE ×2 (11:20→14:45)
[2023-05-12] MEDS ORDERED: insulin regular, human 10 units/0.1 ml syringe IV ONE (11:20)
[2023-05-12] MEDS ORDERED: morphine 2 MG/ML inj. syringe IV ONE ×3 (13:00→17:15)
[2023-05-12] MEDS ORDERED: sodium polystyrene sulfonate 15gm/60ml oral suspension PO ONE (13:20)
[2023-05-12 13:42] LABS: BASOPHILS % (AUTO) 0.4 % (0-1); EOSINOPHILS % (AUTO) 0.3 % (0-6); LYMPHOCYTES # (AUTO) 0.4 X10'3 (1.1-4.8); LYMPHOCYTES % (AUTO) 15.2 % (21-51); MEAN CORPUSCULAR HEMOGLOBIN 27.7 PG (27.0-31.0); MEAN CORPUSCULAR HGB CONC 31.7 g/dL (33.0-36.5); MEAN CORPUSCULAR VOLUME 87.4 FL (78-98); MEAN PLATELET VOLUME 8.2 FL (7.4-10.4); MONOCYTES # (AUTO) 0.2 X10'3 (0-0.9); MONOCYTES % (AUTO) 6.7 % (2-12); NEUTROPHILS # (AUTO) 2.1 X10'3 (1.8-7.7); NEUTROPHILS % (AUTO) 77.4 % (42-75); PLATELET COUNT 60 X10'3 (140-440); RED BLOOD COUNT 1.53 X10'6 (4.20-5.60); RED CELL DISTRIBUTION WIDTH 19.8 % (11.5-14.5); WHITE BLOOD COUNT 2.7 X10'3 (4.5-11.0)
[2023-05-12 14:01] LABS: ANION GAP 23 (8-16); BLOOD UREA NITROGEN 63 MG/DL (7-18); BUN/CREATININE RATIO 30.3 (10.0-20.0); CALCIUM 9.3 MG/DL (8.5-10.1); CHLORIDE 84 MMOL/L (99-107); CREATININE 2.08 MG/DL (0.40-0.90); GLUCOSE 102 MG/DL (70-104); LIPASE 66 U/L (16-77); eCRCL 37 ML/MIN; eGFR 25 ML/MIN
[2023-05-12 14:05] LABS: POTASSIUM 6.1 MMOL/L (3.5-5.1); SODIUM 119 MMOL/L (135-145)
[2023-05-12 14:07] LABS: HEMATOCRIT 13.3 % (35.0-45.0); HEMOGLOBIN 4.2 g/dl (12.0-16.0)
[2023-05-12 14:18] LABS: ANISOCYTOSIS 2+; PLATELET ESTIMATE DECREASED; TOTAL CELLS COUNTED 100
[2023-05-12] MEDS ORDERED: ondansetron/PF 4mg/2ml inj IV ONE ×2 (14:20→17:15)
[2023-05-12 14:23] LABS: ELLIPTOCYTES FEW; HYPOCHROMASIA 1+; POLYCHROMASIA 1+; TEAR DROP CELLS FEW
[2023-05-12 14:24] LABS: SCHISTOCYTES FEW
[2023-05-12] MEDS ORDERED: pantoprazole 40 MG vial IV ONE (17:00)
[2023-05-12 17:48] LABS: MEAN CORPUSCULAR HEMOGLOBIN 27.3 PG (27.0-31.0); MEAN CORPUSCULAR HGB CONC 31.7 g/dL (33.0-36.5); MEAN CORPUSCULAR VOLUME 86.1 FL (78-98); MEAN PLATELET VOLUME 8.4 FL (7.4-10.4); PLATELET COUNT 58 X10'3 (140-440); RED BLOOD COUNT 1.92 X10'6 (4.20-5.60); RED CELL DISTRIBUTION WIDTH 18.3 % (11.5-14.5); WHITE BLOOD COUNT 3.4 X10'3 (4.5-11.0)
[2023-05-12] MEDS: pantoprazole 40MG/NS 100ML BAG 100 ML IV SCH ×2 (17:51→20:37)
[2023-05-12 17:53] LABS: HEMATOCRIT 16.5 % (35.0-45.0); HEMOGLOBIN 5.2 g/dl (12.0-16.0)
[2023-05-12] MEDS ORDERED: acetaminophen 325mg tablet PO PRN (18:15)
[2023-05-12] MEDS ORDERED: magnesium 2GM in 50ml NS 50 ML IV PRN (18:15)
[2023-05-12] MEDS ORDERED: magnesium hydroxide 30ml (MOM) UD suspension PO PRN (18:15)
[2023-05-12] MEDS ORDERED: potassium Cl 20 mEq SR tablet PO PRN ×2 (18:15)
[2023-05-12] MEDS ORDERED: dextrose 50%-water 50ml dispensing syringe IV PRN ×2 (18:15)
[2023-05-12] MEDS ORDERED: insulin Lispro (HumaLOG) vial - multi-dose SQ SCH (18:15)
[2023-05-12] MEDS ORDERED: potassium Cl 40MEQ/1/2NS 520ml 520 ML IV PRN (18:15)
[2023-05-12] MEDS ORDERED: DEXTROSE 15 GM of carb/4 tabs (each vial/BOTTLE has 4 tablets) PO PRN ×2 (18:15)
[2023-05-12] MEDS ORDERED: magnesium 4gm in 100ml NS 100 ML IV PRN (18:15)
[2023-05-12] MEDS ORDERED: glucagon, human recombinant 1mg kit SUBCUT PRN (18:15)
[2023-05-12] MEDS ORDERED: MESSAGE TO PHARMACY PO ONE (18:15)
[2023-05-12] MEDS ORDERED: mag hydrox/Alum hydrox/simeth 30ml oral suspension PO PRN (18:15)
[2023-05-12 19:04] LABS: ABG BASE EXCESS -9.1 mmol/L (-2.0-2.0); ABG OXYGEN SATURATION 99.2 % (94-97); ABG PCO2 (T) 19.8 mmHg (32.0-45.0); ABG PH (T) 7.467 (7.350-7.450); ABG PO2 (T) 158.1 mmHg (75.0-100.0); ALLEN'S TEST Modified; FCOHb 0.3 % (0.0-3.9); FHHb 0.8 % (0.0-5.0); FMetHb 0.5 % (0.0-1.5); FO2Hb 98.4 % (94-97); MODE ROOM AIR; PATIENT TEMPERATURE 36.7; TOTAL HEMOGLOBIN 5.2 G/dl (12.0-16.0)
[2023-05-12 19:24] LABS: INR 1.2 INR
[2023-05-12] MEDS: K and/or MAG REPLACEMENT MC SCH (19:56)
[2023-05-12] MEDS: docusate sod 100mg capsule PO SCH (19:57)
[2023-05-12] MEDS: insulin glargine (Lantus) pen - multi-dose SQ SCH (20:36)
[2023-05-12] MEDS: lactulose 20gm/30ml cup PO SCH (20:39)
[2023-05-12] MEDS: morphine 4 MG/ML inj SYRINge IV PRN (20:52)
[2023-05-12 23:35] LABS: MEAN CORPUSCULAR HEMOGLOBIN 28.4 PG (27.0-31.0); MEAN CORPUSCULAR HGB CONC 33.1 g/dL (33.0-36.5); MEAN CORPUSCULAR VOLUME 85.6 FL (78-98); MEAN PLATELET VOLUME 8.5 FL (7.4-10.4); RED BLOOD COUNT 2.11 X10'6 (4.20-5.60); RED CELL DISTRIBUTION WIDTH 17.7 % (11.5-14.5); WHITE BLOOD COUNT 3.1 X10'3 (4.5-11.0)
[2023-05-12 23:45] LABS: HEMATOCRIT 18.1 % (35.0-45.0); PLATELET COUNT 48 X10'3 (140-440)
[2023-05-13] VITALS (14 sets, daily range): BP systolic 94–134; BP diastolic 43–88; PULSE 86–113; RESP 13–20; TEMP 97.5–99.3; O2SAT 97–100
[2023-05-13] MEDS: albumin (human) 25% 100 ML IV solution IV SCH ×3 (00:43→16:31)
[2023-05-13] MEDS: lactulose 20gm/30ml cup PO SCH ×4 (02:12→21:53)
[2023-05-13] MEDS: ondansetron/PF 4mg/2ml inj IV PRN ×2 (02:13→21:59)
[2023-05-13] MEDS: morphine 4 MG/ML inj SYRINge IV PRN ×2 (02:13→13:17)
[2023-05-13] MEDS: pantoprazole 40MG/NS 100ML BAG 100 ML IV SCH ×6 (03:39→23:55)
[2023-05-13 05:45] LABS: BASOPHILS % (AUTO) 0.1 % (0-1); EOSINOPHILS % (AUTO) 0.7 % (0-6); LYMPHOCYTES # (AUTO) 0.3 X10'3 (1.1-4.8); MEAN CORPUSCULAR HEMOGLOBIN 28.6 PG (27.0-31.0); MEAN CORPUSCULAR HGB CONC 33.8 g/dL (33.0-36.5); MEAN CORPUSCULAR VOLUME 84.6 FL (78-98); MEAN PLATELET VOLUME 8.7 FL (7.4-10.4); MONOCYTES # (AUTO) 0.4 X10'3 (0-0.9); MONOCYTES % (AUTO) 17.6 % (2-12); NEUTROPHILS # (AUTO) 1.5 X10'3 (1.8-7.7); NEUTROPHILS % (AUTO) 66.6 % (42-75); RED BLOOD COUNT 2.22 X10'6 (4.20-5.60); RED CELL DISTRIBUTION WIDTH 17.1 % (11.5-14.5); WHITE BLOOD COUNT 2.2 X10'3 (4.5-11.0)
[2023-05-13 05:57] LABS: ALBUMIN 3.3 G/DL (3.4-5.0); ANION GAP 11 (8-16); BILIRUBIN,TOTAL 2.3 MG/DL (0.1-1.0); BLOOD UREA NITROGEN 51 MG/DL (7-18); BUN/CREATININE RATIO 35.4 (10.0-20.0); CALCIUM 8.7 MG/DL (8.5-10.1); CHLORIDE 88 MMOL/L (99-107); CREATININE 1.44 MG/DL (0.40-0.90); GLUCOSE 113 MG/DL (70-104); MAGNESIUM 1.9 MG/DL (1.5-2.4); POTASSIUM 5.1 MMOL/L (3.5-5.1); TOTAL CARBON DIOXIDE 21.2 MMOL/L (24-32); TOTAL PROTEIN 5.5 G/DL (6.4-8.2); eCRCL 53 ML/MIN; eGFR 39 ML/MIN
[2023-05-13 05:58] LABS: ALANINE AMINOTRANSFERASE 71 U/L (12-78); ALBUMIN/GLOBULIN RATIO 1.5 (1.1-1.5); ALKALINE PHOSPHATASE 94 IU/L (46-116); ASPARTATE AMINO TRANSFERASE 82 U/L (10-37)
[2023-05-13 05:59] LABS: SODIUM 120 MMOL/L (135-145)
[2023-05-13 06:22] LABS: HEMOGLOBIN 6.3 g/dl (12.0-16.0)
[2023-05-13 06:23] LABS: HEMATOCRIT 18.8 % (35.0-45.0); PLATELET COUNT 37 X10'3 (140-440)
[2023-05-13] MEDS: K and/or MAG REPLACEMENT MC SCH ×2 (08:00→20:00)
[2023-05-13] MEDS: docusate sod 100mg capsule PO SCH ×2 (08:35→21:53)
[2023-05-13] MEDS: fludrocortisone acetate 0.1mg tablet PO SCH (08:35)
[2023-05-13 09:52] LABS: OCCULT BLOOD STOOL POSITIVE (Neg)
[2023-05-13] MEDS ORDERED: HYDROmorphone inj. 0.5 MG/0.5 ML DISP.SYRIN IV PRN (16:00)
[2023-05-13] MEDS: HYDROmorphone 1 mg/ml syringe IV PRN ×2 (16:19→21:53)
[2023-05-13 20:47] LABS: HEMATOCRIT 23.4 % (35.0-45.0); MEAN CORPUSCULAR HEMOGLOBIN 29.1 PG (27.0-31.0); MEAN CORPUSCULAR HGB CONC 33.9 g/dL (33.0-36.5); MEAN CORPUSCULAR VOLUME 85.7 FL (78-98); MEAN PLATELET VOLUME 8.7 FL (7.4-10.4); RED BLOOD COUNT 2.74 X10'6 (4.20-5.60); RED CELL DISTRIBUTION WIDTH 16.8 % (11.5-14.5); WHITE BLOOD COUNT 2.5 X10'3 (4.5-11.0)
[2023-05-13 20:56] LABS: PLATELET COUNT 32 X10'3 (140-440)
[2023-05-13] MEDS: insulin glargine (Lantus) pen - multi-dose SQ SCH (21:00)
[2023-05-14] MEDS: albumin (human) 25% 100 ML IV solution IV SCH ×3 (00:13→16:00)
[2023-05-14 02:00] VITALS: BP 102/88; PULSE 111; RESP 20; TEMP 97.7; O2SAT 100
[2023-05-14] MEDS: lactulose 20gm/30ml cup PO SCH ×4 (02:00→20:40)
[2023-05-14] MEDS: pantoprazole 40MG/NS 100ML BAG 100 ML IV SCH ×5 (04:15→21:00)
[2023-05-14 06:00] VITALS: BP 112/57; PULSE 114; RESP 15; TEMP 98.3; O2SAT 97
[2023-05-14 06:21] LABS: BASOPHILS % (AUTO) 0.1 % (0-1); EOSINOPHILS % (AUTO) 0.1 % (0-6); HEMOGLOBIN 7.2 g/dl (12.0-16.0); LYMPHOCYTES # (AUTO) 0.2 X10'3 (1.1-4.8); LYMPHOCYTES % (AUTO) 9.2 % (21-51); MEAN CORPUSCULAR VOLUME 85.4 FL (78-98); MONOCYTES # (AUTO) 0.4 X10'3 (0-0.9); MONOCYTES % (AUTO) 15.2 % (2-12); NEUTROPHILS # (AUTO) 1.9 X10'3 (1.8-7.7); NEUTROPHILS % (AUTO) 75.4 % (42-75); RED BLOOD COUNT 2.48 X10'6 (4.20-5.60); RED CELL DISTRIBUTION WIDTH 16.7 % (11.5-14.5); WHITE BLOOD COUNT 2.5 X10'3 (4.5-11.0)
[2023-05-14 06:29] LABS: ALANINE AMINOTRANSFERASE 56 U/L (12-78); ALBUMIN 4.2 G/DL (3.4-5.0); ALKALINE PHOSPHATASE 70 IU/L (46-116); ANION GAP 10 (8-16); ASPARTATE AMINO TRANSFERASE 59 U/L (10-37); BILIRUBIN,TOTAL 4.5 MG/DL (0.1-1.0); BLOOD UREA NITROGEN 30 MG/DL (7-18); BUN/CREATININE RATIO 28.8 (10.0-20.0); CALCIUM 8.6 MG/DL (8.5-10.1); CHLORIDE 92 MMOL/L (99-107); CREATININE 1.04 MG/DL (0.40-0.90); GLUCOSE 112 MG/DL (70-104); MAGNESIUM 1.9 MG/DL (1.5-2.4); POTASSIUM 4.1 MMOL/L (3.5-5.1); SODIUM 125 MMOL/L (135-145); TOTAL CARBON DIOXIDE 23.1 MMOL/L (24-32); eCRCL 73 ML/MIN; eGFR 56 ML/MIN
[2023-05-14 06:30] LABS: ALBUMIN/GLOBULIN RATIO 2.6 (1.1-1.5); TOTAL PROTEIN 5.8 G/DL (6.4-8.2)
[2023-05-14 06:38] LABS: HEMATOCRIT 21.2 % (35.0-45.0); PLATELET COUNT 25 X10'3 (140-440)
[2023-05-14] MEDS: HYDROmorphone 1 mg/ml syringe IV PRN ×2 (07:05→20:41)
[2023-05-14 07:26] LABS: TOTAL CELLS COUNTED 100
[2023-05-14 07:27] LABS: ANISOCYTOSIS 1+; MICROCYTOSIS 1+; PLATELET ESTIMATE DECREASED; POIKILOCYTOSIS FEW
[2023-05-14] MEDS: docusate sod 100mg capsule PO SCH ×2 (08:00→20:41)
[2023-05-14] MEDS: K and/or MAG REPLACEMENT MC SCH ×2 (08:00→20:00)
[2023-05-14] MEDS: fludrocortisone acetate 0.1mg tablet PO SCH (09:17)
[2023-05-14 11:00] VITALS: BP 126/62; PULSE 120; RESP 13; TEMP 99.8; O2SAT 96
[2023-05-14] MEDS ORDERED: NORMAL SALINE IV ONE (13:40)
[2023-05-14] MEDS ORDERED: DESMOPRESSIN IV ONE (13:40)
[2023-05-14] MEDS: oxyCODONE IR 5mg (immed. release) tablet PO PRN ×2 (13:43→18:00)
[2023-05-14] MEDS: ondansetron/PF 4mg/2ml inj IV PRN ×2 (13:44→20:41)
[2023-05-14 15:00] VITALS: BP 108/61; PULSE 104; RESP 16; TEMP 97.5; O2SAT 98
[2023-05-14 18:00] VITALS: BP 134/63; PULSE 110; RESP 14; TEMP 99.6; O2SAT 98
[2023-05-14] MEDS: insulin glargine (Lantus) pen - multi-dose SQ SCH (21:00)
[2023-05-14 22:00] VITALS: BP 138/82; PULSE 108; RESP 16; TEMP 98; O2SAT 99
[2023-05-14 22:06] LABS: BILIRUBIN,URINE SMALL (Neg); CLARITY,URINE CLEAR (Clear); GLUCOSE, URINE NEGATIVE (Neg); KETONES,URINE NEGATIVE (Neg); LEUKOCYTE ESTERASE ,URINE NEGATIVE (Neg); NITRITES, URINE NEGATIVE (Neg); OCCULT BLOOD,URINE NEGATIVE (Neg); PROTEIN,URINE TRACE mg/dl (Neg); UROBILINOGEN,URINE 0.2 E.U/dL (0.2-1.0)
[2023-05-14 22:12] LABS: COLOR,URINE AMBER (Yellow); UA COLLECTION TYPE NON-SPECIFIED
[2023-05-14 22:13] LABS: SQUAMOUS EPITHELIAL CELL,UR MANY /LPF (FEW)
[2023-05-14 22:14] LABS: RBC,URINE 0-2 /HPF (0-2); WBC,URINE 0-4 /HPF (0-4)
[2023-05-14 22:15] LABS: BACTERIA,URINE 1+ /HPF (Neg)
[2023-05-14 22:18] LABS: SODIUM,URINE RANDOM < 15 MEQ/L; TOTAL PROTEIN,URINE RANDOM 25.9 MG/DL
[2023-05-15] MEDS: lactulose 20gm/30ml cup PO SCH ×2 (01:30→09:10)
[2023-05-15] MEDS: pantoprazole 40MG/NS 100ML BAG 100 ML IV SCH ×3 (01:30→11:00)
[2023-05-15 02:00] VITALS: BP 129/69; PULSE 108; RESP 18; TEMP 97.9; O2SAT 98
[2023-05-15] MEDS: HYDROmorphone 1 mg/ml syringe IV PRN ×2 (05:11→09:05)
[2023-05-15 06:00] VITALS: BP 115/62; PULSE 105; RESP 17; TEMP 97.7; O2SAT 97
[2023-05-15 06:19] LABS: BASOPHILS % (AUTO) 0.2 % (0-1); EOSINOPHILS % (AUTO) 0.1 % (0-6); HEMATOCRIT 24.7 % (35.0-45.0); HEMOGLOBIN 8.3 g/dl (12.0-16.0); LYMPHOCYTES # (AUTO) 0.3 X10'3 (1.1-4.8); LYMPHOCYTES % (AUTO) 5.5 % (21-51); MEAN CORPUSCULAR HEMOGLOBIN 28.6 PG (27.0-31.0); MEAN CORPUSCULAR HGB CONC 33.6 g/dL (33.0-36.5); MEAN PLATELET VOLUME 8.9 FL (7.4-10.4); MONOCYTES # (AUTO) 0.8 X10'3 (0-0.9); NEUTROPHILS # (AUTO) 4.4 X10'3 (1.8-7.7); NEUTROPHILS % (AUTO) 80.2 % (42-75); RED CELL DISTRIBUTION WIDTH 17.1 % (11.5-14.5); WHITE BLOOD COUNT 5.5 X10'3 (4.5-11.0)
[2023-05-15 06:36] LABS: ALANINE AMINOTRANSFERASE 48 U/L (12-78); ALBUMIN 3.9 G/DL (3.4-5.0); ALKALINE PHOSPHATASE 59 IU/L (46-116); ANION GAP 11 (8-16); ASPARTATE AMINO TRANSFERASE 47 U/L (10-37); BILIRUBIN,TOTAL 4.3 MG/DL (0.1-1.0); BLOOD UREA NITROGEN 22 MG/DL (7-18); BUN/CREATININE RATIO 27.2 (10.0-20.0); CALCIUM 8.2 MG/DL (8.5-10.1); CHLORIDE 92 MMOL/L (99-107); CREATININE 0.81 MG/DL (0.40-0.90); GLUCOSE 125 MG/DL (70-104); MAGNESIUM 1.8 MG/DL (1.5-2.4); POTASSIUM 3.6 MMOL/L (3.5-5.1); SODIUM 125 MMOL/L (135-145); TOTAL CARBON DIOXIDE 21.6 MMOL/L (24-32); eCRCL 94 ML/MIN; eGFR 75 ML/MIN
[2023-05-15 06:37] LABS: ALBUMIN/GLOBULIN RATIO 2.4 (1.1-1.5); TOTAL PROTEIN 5.5 G/DL (6.4-8.2)
[2023-05-15 06:39] LABS: PLATELET COUNT 26 X10'3 (140-440)
[2023-05-15] MEDS: oxyCODONE IR 5mg (immed. release) tablet PO PRN (06:47)
[2023-05-15] MEDS: K and/or MAG REPLACEMENT MC SCH (08:00)
[2023-05-15] MEDS: docusate sod 100mg capsule PO SCH (08:00)
[2023-05-15] MEDS: ondansetron/PF 4mg/2ml inj IV PRN (09:00)
[2023-05-15] MEDS: fludrocortisone acetate 0.1mg tablet PO SCH (09:09)
[2023-05-15] MEDS ORDERED: FURO40TA4 PO (10:42)
[2023-05-15 11:00] VITALS: BP 105/69; PULSE 105; RESP 15; TEMP 98; O2SAT 100
== END 2023-05-15 12:25 | disposition home or self-care (01) | DRG 433 ==
LOC: ER 10:54 → ED HOLD 18:19 → PCU 3S 23:59
PROVIDERS: ADMIT Family Medicine; ATTEND Family Medicine
PROC: 30233N1 Transfusion of Nonautologous Red Blood Cells into Peripheral Vein, Percutaneous Approach (ICD-10-PCS; principal; 2023-05-12)
DX: K74.60 Unspecified cirrhosis of liver (principal); E87.1 Hypo-osmolality and hyponatremia; E87.29 Other acidosis; R18.8 Other ascites; N17.9 Acute kidney failure, unspecified; K75.81 Nonalcoholic steatohepatitis (NASH); D50.0 Iron deficiency anemia secondary to blood loss (chronic); D69.6 Thrombocytopenia, unspecified; D73.1 Hypersplenism; E86.0 Dehydration; E87.5 Hyperkalemia; E87.8 Other disorders of electrolyte and fluid balance, not elsewhere classified; K72.10 Chronic hepatic failure without coma; Z90.710 Acquired absence of both cervix and uterus; Z90.49 Acquired absence of other specified parts of digestive tract; Z87.891 Personal history of nicotine dependence; Z82.49 Family history of ischemic heart disease and other diseases of the circulatory system; Z79.84 Long term (current) use of oral hypoglycemic drugs; Z76.82 Awaiting organ transplant status; Z79.899 Other long term (current) drug therapy
CPT/HCPCS: 36415; 36430; 36600; 74176; 80048; 80053; 81001; 82140; 82272; 82570; 82803; 82948; 83605; 83690; 83735; 84133; 84156; 84300; 84484; 84540; 85007; 85018; 85025; 85027; 85610; 86870; 86885; 86900; 86901; 86902; 86905; 86920; 86922; 87081; 99285; C9113; G0378; J0610; J1170; J1815; J2270; J2405; J2597; J3490; J7030; J7040; P9016; P9047

== ENCOUNTER 2023-05-26 07:35 | Day surgery (SDC) | payer BC ==
[~2023-05-26] VITALS: Ht 180.3 cm; Wt 95.2 kg
[2023-05-26] VITALS (7 sets, daily range): BP systolic 95–122; BP diastolic 36–78; PULSE 88–97; RESP 12–16; TEMP 98.4; O2SAT 95–100
[2023-05-26] MEDS ORDERED: RIFA550T PO (07:56)
[2023-05-26] MEDS ORDERED: albumin 25% 100mL bottle x 1 IV PRN (08:05)
[2023-05-26] MEDS: albumin 25% 100mL bottle x 1 IV PRN (08:41)
== END 2023-05-26 10:20 | disposition home or self-care (01) ==
LOC: SSTAY O 07:35
PROVIDERS: ATTEND Radiology Vascular & Interventional Radiology
DX: R18.8 Other ascites (principal); R14.0 Abdominal distension (gaseous); K74.60 Unspecified cirrhosis of liver; K76.6 Portal hypertension; D72.819 Decreased white blood cell count, unspecified; D64.9 Anemia, unspecified; K76.82 Hepatic encephalopathy; D69.6 Thrombocytopenia, unspecified; Z90.49 Acquired absence of other specified parts of digestive tract; Z90.710 Acquired absence of both cervix and uterus; Z98.890 Other specified postprocedural states; Z79.899 Other long term (current) drug therapy
CPT/HCPCS: 49083; C1729; P9047; A6258; A6449

== ENCOUNTER 2023-06-02 08:09 | Day surgery (SDC) | payer BC ==
[~2023-06-02] VITALS: Ht 180.3 cm; Wt 95.3 kg
[2023-06-02] VITALS (10 sets, daily range): BP systolic 103–120; BP diastolic 47–58; PULSE 88–95; RESP 18; TEMP 97.6; O2SAT 100
[~2023-06-02 08:09] MED LIST changes: +RIFA550T PO; -SPIR25TA5 PO
[2023-06-02] MEDS: albumin 25% 100mL bottle x 1 IV PRN (09:01)
[2023-06-02] MEDS: ondansetron/PF 4mg/2ml inj IV ONE (09:24)
[2023-06-02] MEDS: ketorolac tromethamine 15mg/ml inj. IV ONE (09:25)
== END 2023-06-02 11:23 | disposition home or self-care (01) ==
LOC: SSTAY O 08:09
PROVIDERS: ATTEND Radiology Vascular & Interventional Radiology
DX: R18.8 Other ascites (principal); R14.0 Abdominal distension (gaseous); K72.10 Chronic hepatic failure without coma; K75.81 Nonalcoholic steatohepatitis (NASH); E87.1 Hypo-osmolality and hyponatremia; E87.20 Acidosis, unspecified; D64.9 Anemia, unspecified; Z90.710 Acquired absence of both cervix and uterus; Z79.899 Other long term (current) drug therapy; Z90.49 Acquired absence of other specified parts of digestive tract; Z98.890 Other specified postprocedural states; Z87.891 Personal history of nicotine dependence; Z82.49 Family history of ischemic heart disease and other diseases of the circulatory system
CPT/HCPCS: 49083; C1729; J1885; J2405; P9047; A6258